=== PATIENT | male | born 1980 | race Caucasian/White ===

== ENCOUNTER 2016-05-27 19:48 | Emergency (ER) | payer BC, OTHER ==
[2016-05-27 19:56] VITALS: RESP 18
[2016-05-27] MEDS ORDERED: SODIUM CHLORIDE 0.9% 1,000 ML IV STA (20:19)
--- NOTE | 2016-05-27 20:25 | ED ---
Chest Pain HPI - General Chief Complaint: Chest Pain Stated Complaint: Dizzy,Chest Pain Time Seen by Provider: 05/27/16 20:07 Source: patient Mode of arrival: ambulatory Limitations: no limitations - History of Present Illness Initial Comments: Unwell, he had the chest pain off and on for quite a few days now yesterday he felt quite weak he fell He Was Feverish and Had Some Chills Nausea and a Chest Pain or Chest Pain Is Not Any Worse with a Deep Breaths Denies Any Cough He Is Not Bringing up Any Phlegm He Does Have a History of Seizures He Is Not on Any Medications for That Only Surgery He Has a Was Seen and a Tonsils and Adenoids. He Denies Any Sinus Symptoms of TIA or CVA No Abdominal Pain No Frequency Urgency Dysuria He Has Been Smoking for the Last 15 Years Denies Any Alcohol Use but Denies Any Street Drugs and Family History Is Unremarkable for Hernia Artery Disease - Related Data Home Medications Medication Instructions Recorded Confirmed Buprenorphine HCl/Naloxone HCl 0.5 film SL BID 05/27/16 05/27/16 [Suboxone 8 mg-2 mg Sl Film] cloNIDine HCL [Catapres] 0.1 mg PO HS 05/27/16 05/27/16 lamoTRIgine [LaMICtal] 25 mg PO BID 05/27/16 05/27/16 Allergies Allergy/AdvReac Type Severity Reaction Status Date / Time Penicillins Allergy Rash/Hives Verified 05/27/16 20:16 Review of Systems ROS Statement: Those systems with pertinent positive or pertinent negative responses have been documented in the HPI. ROS Other: All systems not noted in ROS Statement are negative. EKG Findings - EKG Comments: EKG Findings:: Review of this EKG shows normal sinus rhythm ventricular rate is 67 CO interval is 144 QRS duration is 94 QT/QTc is 46/429 review of this EKG does not reveal any ST elevation or ST depression Past Medical History Past Medical History: Seizure Disorder History of Any Multi-Drug Resistant Organisms: None Reported Past Surgical History: Tonsillectomy Past Psychological History: No Psychological Hx Reported Smoking Status: Current every day smoker Past Alcohol Use History: None Reported Past Drug Use History: None Reported, Cocaine, Marijuana General Exam - General Exam Comments Initial Comments: General: The patient is awake and alert, in no distress, and does not appear acutely ill. Skin: Skin is warm and dry and no rashes or lesions are noted. Eye: Pupils are equal, round and reactive to light, extra-ocular movements are intact; there is normal conjunctiva bilaterally. Ears, nose, mouth and throat: There are moist mucous membranes and no oral lesions. Neck: The neck is supple, there is no tenderness or JVD. Cardiovascular: There is a regular rate and rhythm. No murmur, rub or gallop is appreciated. Respiratory: To auscultation bilateral, no wheezing no rhonchi no distress respiratory allen noticed Gastrointestinal: Mildly tender in epigastric area, bowel sounds are positive no guarding no rebounds Back: There is no tenderness to palpation in the midline. There is no obvious deformity. Musculoskeletal: Normal ROM, no tenderness, There is no pedal edema. There is no calf tenderness or swelling. No cords were appreciated. Neurological: CN II-XII intact, Cranial nerves III through XII are intact. There are no obvious motor or sensory deficits. Coordination appears grossly intact. Speech is normal. Psychiatric: Cooperative, appropriate mood & affect, normal judgment. Limitations: no limitations Course Vital Signs 05/27/16 19:52 Temperature 98.6 F Pulse Rate 80 Respiratory 18 Rate Blood Pressure 112/71 O2 Sat by Pulse 97 Oximetry - Reevaluation(s) Reevaluation #1: 05/27/16 22:42 He was offered him a CT of the abdomen in the ER, he stated he could see his family doctor tomorrow and he worked past he was advised to have a CAT scan of the abdomen done by family doctor as well as a repeat peak lipase and amylase to make sure that is trending downward. He is advised to come back if his abdominal pain gets worse as well as his chest pain is concerned his EKG and troponin are negative since he has been smoking for a good 15 years advised him to call customs import specialist was seen in the morning and set up a stress test with the customs import specialist Disposition Clinical Impression: Chest pain, Pancreatitis Disposition: HOME SELF-CARE Instructions: Chest Pain (ED) Referrals: None,Stated [Primary Care Provider] - 1-2 days Ailyn Layne MD [STAFF PHYSICIAN] - 1-2 days
[2016-05-27 20:45] LABS: Basophils # (A) 0.1 k/uL (0-0.2); Basophils % (A) 1 %; CH 31.1; CHCM 36.7; Eosinophils # (A) 0.3 k/uL (0-0.7); Eosinophils % (A) 4 %; HCT 45.2 % (39.0-53.0); HDW 2.88; HGB 16.1 gm/dL (13.0-17.5); Luc # (Auto) 0.17; Luc % (Auto) 2; Lymphocytes # (A) 2.5 k/uL (1.0-4.8); Lymphocytes % (A) 32 %; MCH 30.3 pg (25.0-35.0); MCHC 35.6 g/dL (31.0-37.0); Mean Platelet Volume 7.4; Monocytes # (A) 0.3 k/uL (0-1.0); Monocytes % (A) 4 %; Neutrophils # (A) 4.3 k/uL (1.3-7.7); Neutrophils % (A) 57 %; RBC 5.31 m/uL (4.30-5.90); RDW 12.8 % (11.5-15.5); WBC 7.6 k/uL (3.8-10.6); WBC (Perox) 7.17
[2016-05-27 20:54] LABS: ALT 37 U/L (21-72); AST 34 U/L (17-59); Alkaline Phosphatase 78 U/L (38-126); Amylase 123 U/L (30-110); Anion Gap 11 mmol/L; Blood Urea Nitrogen 11 mg/dL (9-20); Calcium 9.7 mg/dL (8.4-10.2); Carbon Dioxide 25 mmol/L (22-30); Chloride 105 mmol/L (98-107); Glucose 99 mg/dL (74-99); Magnesium 1.8 mg/dL (1.6-2.3); Non-African American GFR(MDRD) >60 (>60 ml/min/1.73 sqM); Sodium 141 mmol/L (137-145); Total Bilirubin 0.7 mg/dL (0.2-1.3); Total Protein 7.1 g/dL (6.3-8.2)
[2016-05-27 20:58] LABS: INR 1.1 (<1.1); Partial Thromboplastin Time 27.8 sec (22.0-30.0); Prothrombin Time 10.8 sec (9.0-12.0)
--- NOTE | 2016-05-27 21:05 | XR ---
EXAMINATION TYPE: XR chest 2V DATE OF EXAM: 05/27/2016 8:48 PM COMPARISON: NONE HISTORY: Chest pain TECHNIQUE: Frontal and lateral views of the chest are obtained. FINDINGS: Heart and mediastinum are normal. Lungs are clear. Diaphragm is normal. Bony thorax and so ft tissues appear normal. There are chest leads. IMPRESSION: Normal chest
[2016-05-27 21:14] LABS: Creatine Kinase 204 U/L (55-170)
[2016-05-27 21:27] LABS: Creatine Kinase MB 2.4 ng/mL (0.0-2.4); Troponin I <0.012 ng/mL (0.000-0.034)
[2016-05-27 23:10] VITALS: BP 137/78; PULSE 74; TEMP 97.9
== END 2016-05-27 23:06 | disposition home or self-care (01) ==
LOC: EC 19:48
DX: R07.9 Chest pain, unspecified (principal); K85.90 Acute pancreatitis without necrosis or infection, unspecified; R42 Dizziness and giddiness; R11.0 Nausea; R68.83 Chills (without fever); G40.909 Epilepsy, unspecified, not intractable, without status epilepticus; F17.200 Nicotine dependence, unspecified, uncomplicated; Z79.51 Long term (current) use of inhaled steroids; Z79.899 Other long term (current) drug therapy; Z88.0 Allergy status to penicillin
CPT/HCPCS: 36415; 71020; 80053; 82150; 82550; 82553; 83690; 83735; 84484; 85025; 85610; 85730; 93005; 96360; 96361; 99285

== ENCOUNTER 2016-06-04 17:36 | Emergency (ER) | payer BC ==
[2016-06-04 17:41] VITALS: TEMP 97.3
[2016-06-04] MEDS ORDERED: SODIUM CHLORIDE 0.9% 1,000 ML IV STA (19:21)
[2016-06-04] MEDS ORDERED: RX INFO: IV CONTRAST WAS GIVEN 1 EACH MISC MISCELLANE PRN (19:23)
--- NOTE | 2016-06-04 19:39 | ED ---
Abdominal Pain HPI - General Chief Complaint: Abdominal Pain Stated Complaint: Rt side pain Time Seen by Provider: 06/04/16 19:12 Source: patient Mode of arrival: ambulatory Limitations: no limitations - History of Present Illness Initial Comments: 35-year-old male patient presents to emergency department today for complaints of right flank pain. Patient states that this pain has been present on and off for the last month. Patient states the pain seems to be worsening. Patient states that he has a constant dull ache in his right flank, but occasionally the pain becomes sharp and worsens to a 7-8 out of 10. Patient states that today he did have a near syncopal episode, he became diaphoretic and felt like he was going to pass out, but symptoms resolved with splashing cold water on his face. Patient was seen here on May 27 for similar symptoms, did have a an elevated lipase, a computed tomography scan was offered but patient refused at that time. Patient states he is nauseated and has vomited a couple times over the last month, but denies any vomiting today. Denies any constipation or diarrhea, denies any dizziness, weakness, fever, chills, hematuria, dysuria, urinary urgency, urinary frequency. 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 Patient states he has been taking Suboxone and has not used heroin for the last 5 months. - Related Data Home Medications Medication Instructions Recorded Confirmed Buprenorphine HCl/Naloxone HCl 0.5 film SL TID 05/27/16 06/04/16 [Suboxone 8 mg-2 mg Sl Film] cloNIDine HCL [Catapres] 0.1 mg PO HS 05/27/16 06/04/16 lamoTRIgine [LaMICtal] 50 mg PO HS 05/27/16 06/04/16 Multivitamins, Thera [Multivitamin 1 tab PO DAILY 06/04/16 06/04/16 (formulary)] Previous Rx's Medication Instructions Recorded Ondansetron Odt [Zofran Odt] 4 mg PO Q8HR PRN #10 tab 06/04/16 Allergies Allergy/AdvReac Type Severity Reaction Status Date / Time Penicillins AdvReac SEIZURE Verified 06/04/16 19:29 Review of Systems ROS Statement: Those systems with pertinent positive or pertinent negative responses have been documented in the HPI. ROS Other: All systems not noted in ROS Statement are negative. Past Medical History Past Medical History: Seizure Disorder History of Any Multi-Drug Resistant Organisms: None Reported Past Surgical History: Tonsillectomy Past Psychological History: No Psychological Hx Reported Smoking Status: Current every day smoker Past Alcohol Use History: None Reported Past Drug Use History: None Reported General Exam Limitations: no limitations General appearance: alert, in no apparent distress Head exam: Present: atraumatic, normocephalic, normal inspection Eye exam: Present: normal appearance, PERRL, EOMI. Absent: scleral icterus, conjunctival injection, periorbital swelling ENT exam: Present: normal exam, mucous membranes moist Neck exam: Present: normal inspection. Absent: tenderness, meningismus, lymphadenopathy Respiratory exam: Present: normal lung sounds bilaterally. Absent: respiratory distress, wheezes, rales, rhonchi, stridor Cardiovascular Exam: Present: regular rate, normal rhythm, normal heart sounds. Absent: systolic murmur, diastolic murmur, rubs, gallop, clicks GI/Abdominal exam: Present: soft, tenderness (Over the right flank), normal bowel sounds. Absent: distended, guarding, rebound, rigid, organomegaly, mass, hernia Back exam: Present: normal inspection, CVA tenderness (R). Absent: CVA tenderness (L) Neurological exam: Present: alert, oriented X3, CN II-XII intact Psychiatric exam: Present: normal affect, normal mood Skin exam: Present: warm, dry, intact, normal color. Absent: rash Course Vital Signs 06/04/16 06/04/16 06/04/16 17:37 20:40 21:37 Temperature 97.3 F L Pulse Rate 64 65 66 Respiratory 16 18 18 Rate Blood Pressure 128/73 149/75 133/61 O2 Sat by Pulse 97 100 98 Oximetry Medical Decision Making - Medical Decision Making 35-year-old male patient presented to emergency department today for evaluation of left flank pain and nausea. Patient states his been going on for the last 2 months. Patient did have blood drawn, there was a mixup in the lab and the specimens are lost. Did attempt to have labs redrawn for the patient but he refused to have them drawn again. Did explain importance of obtaining lab specimens, patient states that he did not want to be poked anymore. CT results did show possible gastroenteritis. Previous lab obtained on 05/27/2016 did show elevated lipase. Patient will be discharged home with a prescription for Zofran, instructions to take home pain medications, and a follow-up recommendation with gastroenterology. Patient ejected return for any new, worsening, or concerning symptoms. Patient verbalized understanding and agreed to this plan. - EKG Data -: EKG Interpreted by Me 06/04/16 19:56 EKG obtained at 1940 reveals sinus bradycardia with a ventricular rate of 53, [place] interval 146, QRS duration 100, QT 422, QTC 395. No evidence of ST elevation or depression. Disposition Clinical Impression: Gastroenteritis, Flank pain Disposition: HOME SELF-CARE Condition: Stable Instructions: Abdominal Pain (ED), Gastroenteritis (ED) Additional Instructions: Increase fluids. Take nausea medication as prescribed. Continue home pain medications. Return for any new, worsening, or concerning symptoms. Prescriptions: Ondansetron Odt [Zofran Odt] 4 mg PO Q8HR PRN #10 tab PRN Reason: Nausea Referrals: None,Stated [Primary Care Provider] - 1-2 days Lu Cason MD [STAFF PHYSICIAN] - 1-2 days Time of Disposition: 22:28
[2016-06-04 20:42] VITALS: RESP 18
--- NOTE | 2016-06-04 20:50 | CT ---
EXAMINATION TYPE: CT abdomen pelvis w con DATE OF EXAM: 06/04/2016 8:42 PM COMPARISON: NONE HISTORY: Right sided mid abdominal pain with nausea CT DLP: 886.2 mGycm CONTRAST: CT scan of the abdomen and pelvis is performed without Oral Contrast and with IV Contrast, patient in jected with 100 mL of Omnipaque 300. FINDINGS: LUNG BASES-: No visible nodule. No infiltrate. LIVER/GB: No calcified gallstones. No space occupying hepatic lesion. Biliary tree is of normal ca liber. PANCREAS: No inflammation. No distinct mass. SPLEEN: No splenic enlargement. No lesion seen. ADRENALS: No nodule. No thickening. KIDNEYS/BLADDER: No hydronephrosis. No nephrolithiasis. No disctinct renal mass. Urinary bladder g rossly unremarkable. BOWEL: Normal appendix. Mild fluid distention of the small bowel may reflect gastroenteritis. No infl ammation. GENITAL ORGANS: No gross abnormality. LYMPH NODES: No greater than 1cm abdominal or pelvic lymph nodes are appreciated. AORTA: No significant abnormality. OSSEOUS STRUCTURES: No significant abnormality is seen. OTHER: No significant additional abnormality is seen. IMPRESSION: 1. Correlate for gastroenteritis.
[2016-06-04 21:38] VITALS: BP 133/61; PULSE 66
== END 2016-06-04 22:54 | disposition home or self-care (01) ==
LOC: EC 17:36
DX: K52.9 Noninfective gastroenteritis and colitis, unspecified (principal); R55 Syncope and collapse; G40.909 Epilepsy, unspecified, not intractable, without status epilepticus; F17.200 Nicotine dependence, unspecified, uncomplicated; Z79.899 Other long term (current) drug therapy; Z79.891 Long term (current) use of opiate analgesic; Z88.0 Allergy status to penicillin
CPT/HCPCS: 99284; 93005; 74177; 96360; Q9967

== ENCOUNTER 2021-04-17 10:38 | Emergency (ER) | payer BC ==
[2021-04-17 10:45] VITALS: RESP 18; TEMP 97.7
[2021-04-17 11:29] LABS: Basophils % (A) 1 %; Eosinophils # (A) 0.1 k/uL (0-0.7); Eosinophils % (A) 3 %; HCT 44.4 % (39.0-53.0); HGB 15.6 gm/dL (13.0-17.5); Lymphocytes # (A) 1.5 k/uL (1.0-4.8); Lymphocytes % (A) 30 %; MCH 30.5 pg (25.0-35.0); MCHC 35.2 g/dL (31.0-37.0); MCV 86.6 fL (80.0-100.0); Mean Platelet Volume 7.9; Monocytes # (A) 0.2 k/uL (0-1.0); Monocytes % (A) 4 %; Neutrophils % (A) 61 %; Platelet Count 207 k/uL (150-450); RBC 5.13 m/uL (4.30-5.90); RDW 11.7 % (11.5-15.5); WBC 4.9 k/uL (3.8-10.6)
[2021-04-17 11:38] LABS: ALT 33 U/L (4-49); AST 35 U/L (17-59); African American GFR (CKD) >90 (>60 ml/min/1.73 sqM); Albumin 4.7 g/dL (3.5-5.0); Alkaline Phosphatase 83 U/L (38-126); Anion Gap 10 mmol/L; Blood Urea Nitrogen 13 mg/dL (9-20); Calcium 9.5 mg/dL (8.4-10.2); Carbon Dioxide 27 mmol/L (22-30); Chloride 101 mmol/L (98-107); Glucose 120 mg/dL (74-99); Magnesium 1.8 mg/dL (1.6-2.3); Non-African American GFR(CKD) >90 (>60 ml/min/1.73 sqM); Sodium 138 mmol/L (137-145); Total Bilirubin 0.5 mg/dL (0.2-1.3); Total Protein 7.1 g/dL (6.3-8.2)
[2021-04-17 11:50] LABS: INR 0.9 (<1.2); Partial Thromboplastin Time 26.2 sec (22.0-30.0); Prothrombin Time 10.4 sec (9.0-12.0)
--- NOTE | 2021-04-17 12:44 | XR ---
EXAMINATION TYPE: XR chest 2V DATE OF EXAM: 04/17/2021 COMPARISON: 05/27/2016 INDICATION: Chest pain TECHNIQUE: Frontal and lateral views of the chest are obtained. FINDINGS: The heart size is normal. The pulmonary vasculature is normal. The lungs are clear. IMPRESSION: 1. No acute pulmonary process.
[2021-04-17 13:38] VITALS: BP 103/77; PULSE 66
--- NOTE | 2021-04-17 13:53 | ED ---
General Adult HPI - General Chief complaint: Chest Pain Stated complaint: chest pain, lt arm tingling, SOB Time Seen by Provider: 04/17/21 13:24 Source: patient, RN notes reviewed, old records reviewed Mode of arrival: ambulatory Limitations: no limitations - History of Present Illness Initial comments: Patient is a 40-year-old male with past medical history remarkable for tobacco use, childhood seizure disorder who presents emergency department over concern for chest discomfort that has been ongoing for the last one half weeks. CT also occasionally will have heart palpitations. States the chest pain occasionally is associated with left arm paresthesias. This is he occasionally shortness of breath. Does have a history of anxiety. No known palliative or provocative factors. States he believes it may be secondary to anxiety, however would like to be evaluated. He had Covid in December. Denies any fevers, chills, cough. Denies any nausea, vomiting, abdominal pain. His no other acute complaints at this time. Patient was evaluated after he was placed in a room. Workup was completed at that time. - Related Data Home Medications Medication Instructions Recorded Confirmed Buprenorphine HCl/Naloxone HCl 0.5 film SL TID 05/27/16 06/04/16 [Suboxone 8 mg-2 mg Sl Film] cloNIDine HCL [Catapres] 0.1 mg PO HS 05/27/16 06/04/16 lamoTRIgine [LaMICtal] 50 mg PO HS 05/27/16 06/04/16 Multivitamins, Thera [Multivitamin 1 tab PO DAILY 06/04/16 06/04/16 (formulary)] Previous Rx's Medication Instructions Recorded Ondansetron Odt [Zofran Odt] 4 mg PO Q8HR PRN #10 tab 06/04/16 Mag Hydrox/Al Hydrox/Simeth 30 ml PO BID PRN #400 ml 04/17/21 [Maalox] Allergies Allergy/AdvReac Type Severity Reaction Status Date / Time Penicillins AdvReac SEIZURE Verified 04/17/21 10:45 Review of Systems ROS Statement: Those systems with pertinent positive or pertinent negative responses have been documented in the HPI. ROS Other: All systems not noted in ROS Statement are negative. Past Medical History Past Medical History: Seizure Disorder History of Any Multi-Drug Resistant Organisms: None Reported Past Surgical History: Tonsillectomy Past Psychological History: No Psychological Hx Reported Smoking Status: Vaper Past Alcohol Use History: None Reported Past Drug Use History: None Reported General Exam - General Exam Comments Initial Comments: General: Appears in no acute distress. HEAD: Normal with no signs of head trauma. EYES: PERRLA, EOMI, conjunctiva normal, no discharge. ENT: Hearing grossly intact, normal oropharynx. RESPIRATORY: Clear breath sounds bilaterally. No wheezes, rales, or rhonchi. C/V: Regular rate and rhythm. S1 and S2 auscultated, no edema, peripheral pulses 2+ and intact throughout ABD: Abd is soft, nontender, nondistended EXT: Normal range of motion, no obvious deformity SKIN: No rashes or lesions observed on exposed skin. NEURO: Alert and oriented 4. Limitations: no limitations Course Vital Signs 04/17/21 04/17/21 10:40 13:37 Temperature 97.7 F Pulse Rate 93 66 Respiratory 18 18 Rate Blood Pressure 138/87 103/77 O2 Sat by Pulse 100 99 Oximetry Medical Decision Making - Medical Decision Making Based on the patient's presentation and physical exam, I'm concerned for possible cardiopulmonary etiology for his current symptoms. We will go suspicion, as they have been ongoing for a week and a half he does have a history of anxiety. Patient also seems somewhat musculoskeletal as it does reproduce on movement and stretching. Also be acid reflux. Workup was completed about time evaluated the patient in the room. EKG showed no acute ischemic processes. Chest x-ray showed no acute cardiopulmonary process. Lavatory studies are remarkable for negative troponin, negative d-dimer, and relatively unremarkable labs otherwise. On reevaluation, patient is currently symptomatic. I did discuss with him at length his workup and findings. Heart score is 1. I do believe it is safe for him to be discharged home at this time and he was in agreement the plan. He'll be given acid reflux medications for home. Patient is already on Pepcid. I will provide the patient with a prescription for Maalox. I instructed the patient to follow up with their PCP in the next 3 days. I explained that the patient should return to the emergency department if they experience any worsening symptoms. Strict return precautions were discussed with the patient. The patient expressed understanding of these instructions. I answered all questions that the patient had. The patient was discharged home in good condition with their prescriptions and follow up information. - Lab Data Result diagrams: 04/17/21 11:00 04/17/21 11:00 Lab Results 04/17/21 04/17/21 04/17/21 Range/Units 11:00 11:00 11:00 WBC 4.9 (3.8-10.6) k/uL RBC 5.13 (4.30-5.90) m/uL Hgb 15.6 (13.0-17.5) gm/dL Hct 44.4 (39.0-53.0) % MCV 86.6 (80.0-100.0) fL MCH 30.5 (25.0-35.0) pg MCHC 35.2 (31.0-37.0) g/dL RDW 11.7 (11.5-15.5) % Plt Count 207 (150-450) k/uL MPV 7.9 Neutrophils % 61 % Lymphocytes % 30 % Monocytes % 4 % Eosinophils % 3 % Basophils % 1 % Neutrophils # 3.0 (1.3-7.7) k/uL Lymphocytes # 1.5 (1.0-4.8) k/uL Monocytes # 0.2 (0-1.0) k/uL Eosinophils # 0.1 (0-0.7) k/uL Basophils # 0.0 (0-0.2) k/uL PT 10.4 (9.0-12.0) sec INR 0.9 (<1.2) APTT 26.2 (22.0-30.0) sec D-Dimer <0.17 (<0.60) mg/L FEU Sodium 138 (137-145) mmol/L Potassium 4.0 (3.5-5.1) mmol/L Chloride 101 (98-107) mmol/L Carbon Dioxide 27 (22-30) mmol/L Anion Gap 10 mmol/L BUN 13 (9-20) mg/dL Creatinine 0.70 (0.66-1.25) mg/dL Est GFR (CKD-EPI)AfAm >90 (>60 ml/min/1.73 sqM) Est GFR (CKD-EPI)NonAf >90 (>60 ml/min/1.73 sqM) Glucose 120 H (74-99) mg/dL Calcium 9.5 (8.4-10.2) mg/dL Magnesium 1.8 (1.6-2.3) mg/dL Total Bilirubin 0.5 (0.2-1.3) mg/dL AST 35 (17-59) U/L ALT 33 (4-49) U/L Alkaline Phosphatase 83 (38-126) U/L Troponin I (0.000-0.034) ng/mL Total Protein 7.1 (6.3-8.2) g/dL Albumin 4.7 (3.5-5.0) g/dL 04/17/21 Range/Units 11:00 WBC (3.8-10.6) k/uL RBC (4.30-5.90) m/uL Hgb (13.0-17.5) gm/dL Hct (39.0-53.0) % MCV (80.0-100.0) fL MCH (25.0-35.0) pg MCHC (31.0-37.0) g/dL RDW (11.5-15.5) % Plt Count (150-450) k/uL MPV Neutrophils % % Lymphocytes % % Monocytes % % Eosinophils % % Basophils % % Neutrophils # (1.3-7.7) k/uL Lymphocytes # (1.0-4.8) k/uL Monocytes # (0-1.0) k/uL Eosinophils # (0-0.7) k/uL Basophils # (0-0.2) k/uL PT (9.0-12.0) sec INR (<1.2) APTT (22.0-30.0) sec D-Dimer (<0.60) mg/L FEU Sodium (137-145) mmol/L Potassium (3.5-5.1) mmol/L Chloride (98-107) mmol/L Carbon Dioxide (22-30) mmol/L Anion Gap mmol/L BUN (9-20) mg/dL Creatinine (0.66-1.25) mg/dL Est GFR (CKD-EPI)AfAm (>60 ml/min/1.73 sqM) Est GFR (CKD-EPI)NonAf (>60 ml/min/1.73 sqM) Glucose (74-99) mg/dL Calcium (8.4-10.2) mg/dL Magnesium (1.6-2.3) mg/dL Total Bilirubin (0.2-1.3) mg/dL AST (17-59) U/L ALT (4-49) U/L Alkaline Phosphatase (38-126) U/L Troponin I <0.012 (0.000-0.034) ng/mL Total Protein (6.3-8.2) g/dL Albumin (3.5-5.0) g/dL - EKG Data -: EKG Interpreted by Me EKG Comments: 12-lead Electrocardiogram Interpretation Note EKG was reviewed and interpreted by myself. 12-lead ECG performed at 1100 is interpreted by me as revealing normal sinus rhythm at a rate of 75 beats per minute. [place] is slightly rightward deviated. [place] interval is 156 ms, QRS is 101 ms, QTc is 394 ms.. There were no ST or T wave abnormalities to suggest myocardial ischemia or injury. R wave progression across the precordium was satisfactory. By my interpretation this EKG is non-diagnostic for acute ischemia. Disposition Clinical Impression: Chest pain of unknown etiology, GERD (gastroesophageal reflux disease) Disposition: HOME SELF-CARE Condition: Good Instructions (If sedation given, give patient instructions): Chest Pain (ED) Prescriptions: Mag Hydrox/Al Hydrox/Simeth [Maalox] 30 ml PO BID PRN #400 ml PRN Reason: Dyspepsia Is patient prescribed a controlled substance at d/c from ED?: No Referrals: Philipp Sandoval DO [Primary Care Provider] - 1-2 days
== END 2021-04-17 14:05 | disposition home or self-care (01) ==
LOC: EC 10:38
DX: R07.89 Other chest pain (principal); K21.9 Gastro-esophageal reflux disease without esophagitis; F17.290 Nicotine dependence, other tobacco product, uncomplicated; Z88.0 Allergy status to penicillin
CPT/HCPCS: 36415; 71046; 80053; 83735; 84484; 85025; 85379; 85610; 85730; 93005; 99285

== ENCOUNTER 2021-04-23 21:04 | Emergency (ER) | payer BC ==
[2021-04-23 21:26] VITALS: RESP 20; TEMP 97.5
[2021-04-23 21:52] LABS: Appearance,Urine Clear (Clear); Bilirubin,Urine Negative (Negative); Blood,Urine Negative (Negative); Color,Urine Yellow; Glucose,Urine (UA) Negative (Negative); Ketones,Urine Negative (Negative); Leukocyte Esterase,Urine Negative (Negative); Nitrite,Urine Negative (Negative); PH, Urine 5.5 (5.0-8.0); Protein,Urine Negative (Negative); Specific Gravity,Urine 1.042 (1.001-1.035); Urobilinogen,Urine <2.0 mg/dL (<2.0)
[2021-04-23] MEDS ORDERED: SODIUM CHLORIDE 0.9% 1,000 ML IV STA (23:47)
[2021-04-23] MEDS ORDERED: FAMOTIDINE 20 MG/2 ML VIAL IV STA (23:51)
[2021-04-23] MEDS ORDERED: ONDANSETRON 4 MG/2 ML VIAL IVP STA (23:51)
[2021-04-24 01:00] LABS: Basophils % (A) 0 %; Eosinophils # (A) 0.1 k/uL (0-0.7); Eosinophils % (A) 2 %; HCT 43.1 % (39.0-53.0); Lymphocytes # (A) 1.7 k/uL (1.0-4.8); Lymphocytes % (A) 28 %; MCH 30.6 pg (25.0-35.0); MCHC 34.8 g/dL (31.0-37.0); MCV 87.9 fL (80.0-100.0); Mean Platelet Volume 7.7; Monocytes # (A) 0.3 k/uL (0-1.0); Monocytes % (A) 4 %; Neutrophils # (A) 3.9 k/uL (1.3-7.7); Neutrophils % (A) 64 %; Platelet Count 206 k/uL (150-450); RBC 4.91 m/uL (4.30-5.90); RDW 12.4 % (11.5-15.5); WBC 6.1 k/uL (3.8-10.6)
[2021-04-24 01:13] LABS: ALT 27 U/L (4-49); AST 30 U/L (17-59); African American GFR (CKD) >90 (>60 ml/min/1.73 sqM); Albumin 4.5 g/dL (3.5-5.0); Alkaline Phosphatase 78 U/L (38-126); Amylase 83 U/L (30-110); Anion Gap 8 mmol/L; Blood Urea Nitrogen 12 mg/dL (9-20); Calcium 9.3 mg/dL (8.4-10.2); Carbon Dioxide 27 mmol/L (22-30); Chloride 102 mmol/L (98-107); Glucose 98 mg/dL (74-99); Lipase 228 U/L (23-300); Non-African American GFR(CKD) >90 (>60 ml/min/1.73 sqM); Potassium 4.6 mmol/L (3.5-5.1); Sodium 137 mmol/L (137-145); Total Bilirubin 0.7 mg/dL (0.2-1.3); Total Protein 6.8 g/dL (6.3-8.2)
--- NOTE | 2021-04-24 01:17 | ED ---
Abdominal Pain HPI - General Source: patient Mode of arrival: ambulatory Limitations: no limitations - History of Present Illness MD Complaint: abdominal pain <Therese Reddy - Last Filed: 04/24/21 02:30> <Randell Sagastume - Last Filed: 04/26/21 14:15> - General Chief Complaint: Abdominal Pain Stated Complaint: Abd pain Time Seen by Provider: 04/23/21 23:32 - History of Present Illness Initial Comments: He specifically 40-year-old male sent in with chief complaint of abdominal pain. The pain comes and goes and has been present for about 2 weeks. Pain is a cramping, bloating, burning pain located in the epigastric region. Pain is worse with eating, not affected by food intake. Patient has been seen in the [facility] and by his PCP regarding pain. His PCP advised treatment with Prilosec, and patient states he recently told him to double his dose to 40 mg a day. Patient states that Prilosec has made the pain worse. Patient received an abdominal CT today which revealed no acute abdominal process. Patient states he has not taken any other medication outside of Prilosec for symptomatic relief. Patient admits to nausea and diarrhea. Denies vomiting, hematochezia, constipation, fever, chills, chest pain, shortness of breath, palpitations, dysuria, urgency, frequency, flank pain, headache, rash. (Therese Reddy) - Related Data Home Medications Medication Instructions Recorded Confirmed Omeprazole [PriLOSEC] 20 mg PO DAILY 04/23/21 04/25/21 Sucralfate [Carafate] 1 gm PO ACHS 04/23/21 04/25/21 Buprenorphine HCl/Naloxone HCl 4 mg SUBLINGUAL BID 04/25/21 04/25/21 [Buprenorphine-Nalox 8-2Mg Film] Previous Rx's Medication Instructions Recorded Dicyclomine [Bentyl] 20 mg PO QID PRN #20 tablet 04/24/21 Ondansetron Odt [Zofran Odt] 4 mg PO Q8HR PRN #20 tab 04/24/21 Allergies Allergy/AdvReac Type Severity Reaction Status Date / Time Penicillins AdvReac SEIZURE Verified 04/25/21 12:35 Review of Systems ROS Other: All systems not noted in ROS Statement are negative. <Therese Reddy - Last Filed: 04/24/21 02:30> ROS Other: All systems not noted in ROS Statement are negative. <HamletkhloeRandell - Last Filed: 04/26/21 14:15> ROS Statement: Those systems with pertinent positive or pertinent negative responses have been documented in the HPI. Past Medical History Past Medical History: Seizure Disorder History of Any Multi-Drug Resistant Organisms: None Reported Past Surgical History: Tonsillectomy Past Psychological History: No Psychological Hx Reported Smoking Status: Vaper Past Alcohol Use History: None Reported Past Drug Use History: None Reported <Therese Reddy - Last Filed: 04/24/21 02:30> General Exam Limitations: no limitations General appearance: alert, in no apparent distress, anxious Head exam: Present: atraumatic, normocephalic, normal inspection Eye exam: Present: normal appearance, PERRL, EOMI. Absent: scleral icterus, conjunctival injection, periorbital swelling ENT exam: Present: normal exam, mucous membranes moist Neck exam: Present: normal inspection Respiratory exam: Present: normal lung sounds bilaterally. Absent: respiratory distress, wheezes, rales, rhonchi, stridor Cardiovascular Exam: Present: regular rate, normal rhythm, normal heart sounds. Absent: systolic murmur, diastolic murmur, rubs, gallop, clicks GI/Abdominal exam: Present: soft, tenderness (Right upper quadrant, mild), normal bowel sounds. Absent: distended, guarding, rebound, rigid Neurological exam: Present: alert, oriented X3, CN II-XII intact Psychiatric exam: Present: normal affect, normal mood Skin exam: Present: warm, dry, intact, normal color. Absent: rash <Therese Reddy - Last Filed: 04/24/21 02:30> Course Vital Signs 04/23/21 04/24/21 21:22 00:26 Temperature 97.5 F L Pulse Rate 67 88 Respiratory 20 20 Rate Blood Pressure 130/78 124/61 O2 Sat by Pulse 98 98 Oximetry Medical Decision Making - Lab Data Result diagrams: 04/23/21 23:47 04/23/21 23:47 - Radiology Data Radiology results: report reviewed <Therese Reddy - Last Filed: 04/24/21 02:30> - Lab Data Result diagrams: 04/23/21 23:47 04/23/21 23:47 <Randell Sagastume - Last Filed: 04/26/21 14:15> - Medical Decision Making Patient is a 40-year-old male presenting with chief complaint of abdominal pain. Pain is located primarily in the epigastric region. He states it feels like a burning, cramping, gnawing pain. He admits to frequent bloating and states that "as soon as food hits my stomach I am in pain". He admits to nausea and no vomiting. He admits to occasional diarrhea. He denies chest pain, shortness of breath, palpitations. He takes Prilosec as advised by his PCP, states that it makes the pain worse. On exam there is mild tenderness in the right upper quadrant, normal bowel sounds in all 4 quadrants. He had a computed tomography scan today prior to arrival in the ER that was unremarkable. His labs were unremarkable. He was given Pepcid and Zofran and dated that they did not change his symptoms. Patient was given a prescription for a gallbladder ultrasound and told to come back tomorrow to have the study performed. Follow up with GI in 1- 2 days. Follow-up with PCP in one to 2 days. Provided with prescription for Bentyl 20 mg 4 times a day when necessary and Zofran 4 mg every 8 hours when necessary. Provided with information on low fat, gallbladder friendly diet. Advised patient to keep a symptom diary. All questions. Patient conveyed verbal understanding and agreed to the plan. I discussed this case with my attending Dr. Sagastume. (Therese Reddy) I saw this patient in conjunction with the physician program support assistant. I performed independent history and physical exam. Agree with case management. (Randell Sagastume) - Lab Data Lab Results 04/23/21 04/23/21 04/23/21 Range/Units 21:36 23:47 23:47 WBC 6.1 (3.8-10.6) k/uL RBC 4.91 (4.30-5.90) m/uL Hgb 15.0 (13.0-17.5) gm/dL Hct 43.1 (39.0-53.0) % MCV 87.9 (80.0-100.0) fL MCH 30.6 (25.0-35.0) pg MCHC 34.8 (31.0-37.0) g/dL RDW 12.4 (11.5-15.5) % Plt Count 206 (150-450) k/uL MPV 7.7 Neutrophils % 64 % Lymphocytes % 28 % Monocytes % 4 % Eosinophils % 2 % Basophils % 0 % Neutrophils # 3.9 (1.3-7.7) k/uL Lymphocytes # 1.7 (1.0-4.8) k/uL Monocytes # 0.3 (0-1.0) k/uL Eosinophils # 0.1 (0-0.7) k/uL Basophils # 0.0 (0-0.2) k/uL Sodium 137 (137-145) mmol/L Potassium 4.6 (3.5-5.1) mmol/L Chloride 102 (98-107) mmol/L Carbon Dioxide 27 (22-30) mmol/L Anion Gap 8 mmol/L BUN 12 (9-20) mg/dL Creatinine 0.77 (0.66-1.25) mg/dL Est GFR (CKD-EPI)AfAm >90 (>60 ml/min/1.73 sqM) Est GFR (CKD-EPI)NonAf >90 (>60 ml/min/1.73 sqM) Glucose 98 (74-99) mg/dL Calcium 9.3 (8.4-10.2) mg/dL Total Bilirubin 0.7 (0.2-1.3) mg/dL AST 30 (17-59) U/L ALT 27 (4-49) U/L Alkaline Phosphatase 78 (38-126) U/L Total Protein 6.8 (6.3-8.2) g/dL Albumin 4.5 (3.5-5.0) g/dL Amylase 83 (30-110) U/L Lipase 228 (23-300) U/L Urine Color Yellow Urine Appearance Clear (Clear) Urine pH 5.5 (5.0-8.0) Ur Specific [place] 1.042 H (1.001-1.035) Urine Protein Negative (Negative) Urine Glucose (UA) Negative (Negative) Urine Ketones Negative (Negative) Urine Blood Negative (Negative) Urine Nitrite Negative (Negative) Urine Bilirubin Negative (Negative) Urine Urobilinogen <2.0 (<2.0) mg/dL Ur Leukocyte Esterase Negative (Negative) - Radiology Data Abdominal x-ray confirms this is a nonacute abdomen. (Therese Reddy) Disposition Is patient prescribed a controlled substance at d/c from ED?: No <Therese Reddy - Last Filed: 04/24/21 02:30> <Randell Sagastume - Last Filed: 04/26/21 14:15> Clinical Impression: Abdominal pain Disposition: HOME SELF-CARE Condition: Good Instructions (If sedation given, give patient instructions): Low Fat Diet (ED), Abdominal Pain (ED) Additional Instructions: Patient prescription for ultrasound of the gallbladder, report back to Kar[facility]fern[facility] Stokes test study performed. Follow up with GI in 1-2 days. Follow low-fat diet. Maintain symptom diary to identify potential triggers of pain. Continue to take Prilosec as needed. Report back to ER with worsening symptoms or new onset alarming symptoms, including but not limited to fever, chills, vomiting, blood in stool or emesis. Prescriptions: Dicyclomine [Bentyl] 20 mg PO QID PRN #20 tablet PRN Reason: Abdominal Distention Ondansetron Odt [Zofran Odt] 4 mg PO Q8HR PRN #20 tab PRN Reason: Nausea Referrals: Lu Cason MD [STAFF PHYSICIAN] - 1-2 days Philipp Sandoval DO [Primary Care Provider] - 1-2 days
--- NOTE | 2021-04-24 01:22 | XR ---
EXAMINATION TYPE: XR abdomen acute w cxr DATE OF EXAM: 04/24/2021 COMPARISON: This x-ray 04/17/2021 HISTORY: Abdominal pain TECHNIQUE: 4 views FINDINGS: Heart and mediastinum are normal. Lungs are clear. Diaphragm is normal. There is some contr ast in the large bowel. There is no sign of intestinal obstruction or pneumoperitoneum. Fecal pattern is normal. There are no pathologic calcifications over the kidneys. Bony structures are intact. Ther e is no evidence of abdominal mass. IMPRESSION: Normal chest. Nonacute abdomen.
[2021-04-24 02:25] VITALS: BP 124/61; PULSE 88
== END 2021-04-24 02:45 | disposition home or self-care (01) ==
LOC: EC 21:04
DX: R10.11 Right upper quadrant pain (principal); F17.290 Nicotine dependence, other tobacco product, uncomplicated; Z88.0 Allergy status to penicillin
CPT/HCPCS: 99284; 96374; 96375; 96361; 36415; 80053; 82150; 83690; 85025; 81003; 74022; J2405

== ENCOUNTER → 2021-04-23 | Outpatient (CLI) | payer BC ==
--- NOTE | 2021-04-23 13:38 | CT ---
EXAMINATION TYPE: CT abdomen pelvis w con DATE OF EXAM: 04/23/2021 COMPARISON: CT a/p dated 06/04/2016. CT abdomen and pelvis HISTORY: abdominal pain x1 week with nausea CT DLP: 1152.7 mGycm, Automated Exposure Control for Dose Reduction was Utilized. CONTRAST: CT scan of the abdomen and pelvis is performed with oral and with IV Contrast, patient injected with 100 mL of Isovue 300. FINDINGS: LUNG BASES: No significant abnormality is appreciated. LIVER/GB: No significant abnormality is appreciated. PANCREAS: No significant abnormality is seen. SPLEEN: No significant abnormality is seen. ADRENALS: No significant abnormality is seen. KIDNEYS: No significant abnormality is seen. BOWEL: No suspicious small or large bowel dilatation. Oral contrast reaches the right colon. PROSTATE/SEMINAL VESICLES: No gross abnormality seen. LYMPH NODES: No greater than 1cm abdominal or pelvic lymph nodes are appreciated. OSSEOUS STRUCTURES: Bilateral pars defect L5 level redemonstrated. Slight grade 1 anterolisthesis L5 on S1 redemonstrated. [id number] disc space narrowing lumbosacral junction redemonstrated. OTHER: No significant additional abnormality is seen. IMPRESSION: No bowel obstruction. No significant new or acute finding is seen to account for patient' s clinical symptoms.
== END | disposition home or self-care (01) ==
LOC: RADCTMAIN 11:18
PROVIDERS: ATTEND Family Medicine
DX: R10.84 Generalized abdominal pain (principal); R11.2 Nausea with vomiting, unspecified; R19.7 Diarrhea, unspecified; R50.9 Fever, unspecified
CPT/HCPCS: 74177; Q9967

== ENCOUNTER → 2021-04-25 | Outpatient (CLI) | payer BC ==
--- NOTE | 2021-04-25 13:40 | US ---
EXAMINATION TYPE: US abdomen limited DATE OF EXAM: 04/25/2021 COMPARISON: CT 2021 CLINICAL HISTORY: R10.11 RUQ PAIN. RUQ pain x 2 weeks, bloating, nausea EXAM MEASUREMENTS: Liver Length: 16.2 cm Gallbladder Wall: 0.2 cm CBD: 0.5 cm Right Kidney: 11.2 x 5.0 x 5.1 cm Pancreas: obscured by overlying midline bowel gas Liver: visualized portions wnl, limited by overlying bowel gas Gallbladder: wnl Evidence for sonographic [place]'s sign: no CBD: wnl Right Kidney: wnl IMPRESSION: 1. Right upper quadrant ultrasound is unremarkable.
== END | disposition home or self-care (01) ==
LOC: RADUSWWP 13:01
PROVIDERS: ATTEND Family Medicine
DX: R10.11 Right upper quadrant pain (principal); R14.0 Abdominal distension (gaseous); R11.0 Nausea
CPT/HCPCS: 76705

== ENCOUNTER 2021-04-26 12:11 | Day surgery (SDC) | payer BC ==
[2021-04-26] MEDS ORDERED: LACTATED RINGERS 1,000 ML IV SCH (12:28)
[2021-04-26 12:42] VITALS: TEMP 97.9
[2021-04-26] MEDS ORDERED: LACTATED RINGERS 1,000 ML IV ONE (12:42)
[2021-04-26] MEDS ORDERED: PROPOFOL 10 MG/ML 20 ML VIAL IV ONE (12:50)
--- NOTE | 2021-04-26 13:08 | P.PCN ---
Date of Procedure: 04/26/21 Procedure(s) Performed: BRIEF HISTORY: Patient is a 40-year-old, pleasant, white male scheduled for an upper endoscopy as a part of evaluation of severe epigastric pain for the last 2 weeks' duration. Pain is mostly in epigastric area associated with nausea but no emesis. He went to emergency room on 2 different occasions and had cardiac workup that was negative. CT of abdomen as well as ultrasound of gallbladder were negative. He was started on Prilosec as well as Carafate with improvement in his symptoms. He scheduled for an upper endoscopy to rule out peptic ulcer disease. Patient has been taking NSAIDs for the last several months for chronic back. PROCEDURE PERFORMED: Esophagogastroduodenoscopy. PREOPERATIVE DIAGNOSIS: Severe epigastric pain of 2 weeks' duration. IV sedation per anesthesia. PROCEDURE: After informed consent was obtained, the patient was brought into the endoscopy unit. IV sedation was administered by Anesthesia under continuous monitoring. Initially the Olympus GIF-140 video endoscope was inserted into the mouth. Esophagus intubated without any difficulty. It was gradually advanced into the stomach and duodenum and carefully examined. The bulb had a small duodenal ulcer with no active bleeding. The second part of the duodenum appeared normal. The scope at this time was withdrawn to the stomach, adequately insufflated with air, and upon careful examination, mucosa of the antrum, diffuse gastritis and biopsies were done from this area. The body, cardia and the fundus appeared normal. The scope was then withdrawn into the esophagus. The GE junction was located at 42 cm from the incisors. The esophagus appeared normal. There were no erosions or ulcerations seen and the patient tolerated the procedure well. IMPRESSION: 1. Antral erosive gastritis and duodenitis. 2. 4 mm duodenal bulbar ulcer with no active bleeding. RECOMMENDATIONS: The findings of this examination were discussed with the patient as well as his family. He was advised to follow with the biopsy results. In the meantime recommended to increase the Prilosec to 20 mg twice daily and take Carafate as needed..
[2021-04-26 13:14] VITALS: RESP 16
[2021-04-26 13:38] VITALS: BP 119/77; PULSE 85
== END 2021-04-26 14:24 | disposition home or self-care (01) ==
LOC: ORWHC2ENDO 12:11
PROVIDERS: ATTEND Internal Medicine Gastroenterology
DX: K29.60 Other gastritis without bleeding (principal); F17.200 Nicotine dependence, unspecified, uncomplicated; K21.9 Gastro-esophageal reflux disease without esophagitis; G40.909 Epilepsy, unspecified, not intractable, without status epilepticus; K29.80 Duodenitis without bleeding; K26.9 Duodenal ulcer, unspecified as acute or chronic, without hemorrhage or perforation
CPT/HCPCS: 43239; 88305; J2704

== ENCOUNTER 2021-06-21 13:02 | Day surgery (SDC) | payer BC ==
[2021-06-20 10:44] VITALS: BMI 26.4
[~2021-06-21 13:02] MED LIST: LACTATED RINGERS 1,000 ML IV SCH
[2021-06-21 14:04] VITALS: RESP 16; TEMP 98.5
[2021-06-21] MEDS ORDERED: MIDAZOLAM 2 MG/2 ML VIAL IV ONE (14:18)
[2021-06-21] MEDS ORDERED: PROPOFOL 10 MG/ML 20 ML VIAL IV ONE (14:51)
[2021-06-21] MEDS ORDERED: fentaNYL (PF) 50 MCG/ML 2 ML AMP ONE (14:51)
[2021-06-21] MEDS ORDERED: MIDAZOLAM 2 MG/2 ML VIAL ONE (14:51)
--- NOTE | 2021-06-21 15:15 | P.PCN ---
Date of Procedure: 06/21/21 Procedure(s) Performed: BRIEF HISTORY: Patient is a 40-year-old pleasant white male scheduled for an elective colonoscopy as a part of evaluation of severe lower abdominal pain with alternating diarrhea and constipation for the last 2 months duration. He was also having severe epigastric discomfort and had an upper endoscopy done in April that showed a small duodenal ulcer. His been on Nexium and Carafate with no help with the symptoms. He was started on Bentyl 10 mg 3 times daily and is feeling feeling much better lately. PROCEDURE PERFORMED: Colonoscopy With random biopsies PREOPERATIVE DIAGNOSIS: Lower abdominal pain and altered bowel movements. IV sedation per Anesthesia. PROCEDURE: After informed consent was obtained, the patient, was brought into the endoscopy unit. IV sedation was administered by Anesthesia under continuous monitoring. Digital rectal examination was normal. Initially the Olympus CF-160 flexible video colonoscope was then inserted in the rectum, gradually advanced into the cecum without any difficulty. Careful examination was performed as the scope was gradually being withdrawn. Ileocecal valve and the appendiceal orifice were visualized and appeared normal. Prep was excellent. Mucosa of the cecum, ascending colon, transverse colon, descending colon, appeared normal. Patchy areas of erythema noted which was biopsied. The sigmoid colon, and rectum appeared normal. Biopsies were done from ascending and descending colon/collagenous colitis. Retroflexion was performed in the rectum and no lesions were seen. The patient tolerated the procedure well. IMPRESSION: Normal-appearing colon from rectum to cecum with no evidence of colitis or colorectal neoplasia Mild scattered areas of erythema in the distal sigmoid colon s/p biopsy RECOMMENDATIONS: Findings of this examination were discussed with the patient as well as his family. He was advised to follow with the biopsy results. In the meantime he will continue with dicyclomine 10 milligrams times daily and follow diet modification..
[2021-06-21 15:34] VITALS: BP 124/54; PULSE 58
== END 2021-06-21 15:57 | disposition home or self-care (01) ==
LOC: ORWHC2ENDO 13:02
PROVIDERS: ATTEND Internal Medicine Gastroenterology
DX: R10.30 Lower abdominal pain, unspecified (principal); R19.7 Diarrhea, unspecified; K59.00 Constipation, unspecified; K21.9 Gastro-esophageal reflux disease without esophagitis; K26.9 Duodenal ulcer, unspecified as acute or chronic, without hemorrhage or perforation; Z79.899 Other long term (current) drug therapy; F17.290 Nicotine dependence, other tobacco product, uncomplicated; Z88.0 Allergy status to penicillin; Z86.69 Personal history of other diseases of the nervous system and sense organs; Z90.89 Acquired absence of other organs
CPT/HCPCS: 88305; 45380; J2250; J3010; J2704

== ENCOUNTER → 2021-07-24 | Outpatient (CLI) | payer BC ==
--- NOTE | 2021-07-25 04:19 | MR ---
EXAMINATION TYPE: MR abdomen wo/w con DATE OF EXAM: 07/24/2021 COMPARISON: HISTORY: Mid and LRQ abdominal pain, N & V x 10 days. CONTRAST: Standard multiplanar, multisequence MRI departmental protocol images were obtained without contrast a nd with 8 mL intravenous Gadavist gadolinium contrast. Lung bases show no definite pleural fluid. Heart size is normal. No sign of pericardial effusion. Liver is intact. Bile ducts are nondilated. Gallbladder appears normal. There is no pancreatic mass. The spleen measures 12 cm. There is no evidence of pancreatic mass. Pancreatic duct appears normal. T here is normal flow void in the portal venous system. Stomach is intact. There is no evidence of asci ivelisse. There is no adrenal mass. Kidneys show normal size and contour. No hydronephrosis. There is no evidence of retroperitoneal adenopathy. Contrast images show normal enhancement of the kidneys. There is normal enhancement of the portal mao ous system. No pathologic enhancement in the pancreas. IMPRESSION: Negative MR scan of the abdomen.
== END | disposition home or self-care (01) ==
LOC: RADMRIMAIN 20:52
PROVIDERS: ATTEND Internal Medicine Gastroenterology
DX: R10.9 Unspecified abdominal pain (principal); R11.2 Nausea with vomiting, unspecified
CPT/HCPCS: 74183; A9585

== ENCOUNTER → 2021-09-09 | Outpatient (CLI) | payer BC ==
--- NOTE | 2021-09-09 15:37 | NM ---
EXAMINATION TYPE: NM hepatobiliary w EF DATE OF EXAM: 09/09/2021 COMPARISON: NONE HISTORY: R10.13 EPIGASTRIC PAIN TECHNIQUE: After the intravenous administration of 4.1 mCi Tc 99m Mebrofenin hepatobiliary scintigrap hy is performed. Immediate images post injection. FINDINGS: There is satisfactory initial accumulation of tracer by the liver. The gallbladder is visualized wit hin 16minutes. The small bowel activity is noted within 60minutes. At one hour 8 ounces of oral ens ure plus is given to mimic CCK and gallbladder ejection fraction is calculated at 85 %, in the normal range. Therefore there is no scintigraphic evidence of cystic or common bile duct obstruction to mendenhall ggest acute cholecystitis or gallbladder dyskinesia. IMPRESSION: Exam is within normal limits.
== END | disposition home or self-care (01) ==
LOC: RADNMMAIN 13:03
PROVIDERS: ATTEND Internal Medicine Gastroenterology
DX: R10.13 Epigastric pain (principal)
CPT/HCPCS: 78226; A9537

== ENCOUNTER 2021-09-10 23:57 | Emergency (ER) | payer BC ==
[2021-09-11 00:05] VITALS: RESP 16; TEMP 97.9
--- NOTE | 2021-09-11 00:37 | ED ---
Anxiety HPI - General Chief Complaint: Anxiety Stated Complaint: Anxiety Time Seen by Provider: 09/11/21 00:01 Source: patient, EMS, RN notes reviewed, old records reviewed Mode of arrival: EMS Limitations: altered mental status, physical limitation - History of Present Illness Initial Comments: This is a 40-year-old male to the emergency department for evaluation. Patient's coming in for possibly severe anxiety attack. No travel history no sick contacts no change in medications denies drugs or alcohol tonight. Patient is not homicidal or suicidal. She states he believes symptoms are related to family issues he can't catch his breath is having chest pain and palpitations. MD Complaint: anxiety, heart racing -: hour(s) Symptoms: dyspnea, chest pain, palpitations Place: home Previous History of Same: Yes Severity: severe Quality: worsening Provoking factors: emotional stress Improves With: nothing Associated symptoms: chest pain, shortness of breath, palpitations - Related Data Home Medications: Home Medications Medication Instructions Recorded Confirmed Buprenorphine HCl/Naloxone HCl 4 mg SUBLINGUAL BID 04/25/21 06/21/21 [Buprenorphine-Nalox 8-2Mg Film] Esomeprazole Magnesium 40 mg PO DAILY 06/20/21 06/21/21 Previous Rx's Medication Instructions Recorded Dicyclomine [Bentyl] 20 mg PO QID PRN #20 tablet 04/24/21 Ondansetron Odt [Zofran Odt] 4 mg PO Q8HR PRN #20 tab 04/24/21 Allergies/Adverse Reactions: Allergies Allergy/AdvReac Type Severity Reaction Status Date / Time Penicillins AdvReac SEIZURE Verified 06/21/21 13:53 Review of Systems ROS Statement: Those systems with pertinent positive or pertinent negative responses have been documented in the HPI. ROS Other: All systems not noted in ROS Statement are negative. Past Medical History Past Medical History: Seizure Disorder Additional Past Medical History / Comment(s): HX BLEEDING ULCER. CHILDHOOD EPILEPSY-LAST SEIZURE OVER 20 YEARS AGO. ADB PAIN, BLOATING OVER 2 MONTHS. DUDODENAL ULCER AND GASTRITIS SEEN ON EGD 04/26/21. RASH ON UPPER ARMS-POSSIBLE CELIAC History of Any Multi-Drug Resistant Organisms: None Reported Past Surgical History: Tonsillectomy Additional Past Surgical History / Comment(s): DUDODENAL ULCER AND GASTRITIS SEEN ON EGD 04/26/21 Past Anesthesia/Blood Transfusion Reactions: No Reported Reaction Smoking Status: Former smoker, Vaper - Past Family History Mother Family Medical History: No Reported History General Exam Limitations: no limitations General appearance: alert, in no apparent distress Head exam: Present: atraumatic, normocephalic, normal inspection Eye exam: Present: normal appearance, PERRL, EOMI. Absent: scleral icterus, conjunctival injection, periorbital swelling ENT exam: Present: normal exam, mucous membranes moist Neck exam: Present: normal inspection. Absent: tenderness, meningismus, lymphadenopathy Respiratory exam: Present: normal lung sounds bilaterally. Absent: respiratory distress, wheezes, rales, rhonchi, stridor Cardiovascular Exam: Present: regular rate, normal rhythm, normal heart sounds. Absent: systolic murmur, diastolic murmur, rubs, gallop, clicks GI/Abdominal exam: Present: soft, normal bowel sounds. Absent: distended, tenderness, guarding, rebound, rigid Extremities exam: Present: normal inspection, full ROM, normal capillary refill. Absent: tenderness, pedal edema, joint swelling, calf tenderness Back exam: Present: normal inspection Neurological exam: Present: alert, oriented X3, CN II-XII intact Psychiatric exam: Present: normal affect, normal mood Skin exam: Present: warm, dry, intact, normal color. Absent: rash Course Vital Signs 09/10/21 09/11/21 23:59 04:08 Temperature 97.9 F Pulse Rate 93 77 Respiratory 16 16 Rate Blood Pressure 122/78 108/65 O2 Sat by Pulse 97 98 Oximetry - Reevaluation(s) Reevaluation #1: 09/11/21 Medical record is reviewed Reevaluation #2: 09/11/21 Patient informed of results and questions answered Consult with for does not think patient needs psychiatric evaluation at this time Reevaluation #3: 09/11/21 Patient symptoms are improved Medical Decision Making - Medical Decision Making 40 male to the emergency department for significant anxiety attack. Testing is normal here in the ER, patient symptoms appear all related to anxiety over his son. Not homicidal or suicidal no drugs or alcohol patient can be discharged - Lab Data Result diagrams: 09/11/21 01:29 09/11/21 01:29 Lab Results 09/11/21 09/11/21 09/11/21 Range/Units 01:29 01:29 01:29 WBC 7.9 (3.8-10.6) k/uL RBC 4.87 (4.30-5.90) m/uL Hgb 14.2 (13.0-17.5) gm/dL Hct 42.6 (39.0-53.0) % MCV 87.5 (80.0-100.0) fL MCH 29.2 (25.0-35.0) pg MCHC 33.3 (31.0-37.0) g/dL RDW 12.5 (11.5-15.5) % Plt Count 198 (150-450) k/uL MPV 7.6 Neutrophils % 81 % Lymphocytes % 12 % Monocytes % 4 % Eosinophils % 1 % Basophils % 1 % Neutrophils # 6.5 (1.3-7.7) k/uL Lymphocytes # 1.0 (1.0-4.8) k/uL Monocytes # 0.3 (0-1.0) k/uL Eosinophils # 0.1 (0-0.7) k/uL Basophils # 0.1 (0-0.2) k/uL Sodium 135 L (137-145) mmol/L Potassium 4.6 (3.5-5.1) mmol/L Chloride 102 (98-107) mmol/L Carbon Dioxide 28 (22-30) mmol/L Anion Gap 5 mmol/L BUN 15 (9-20) mg/dL Creatinine 0.89 (0.66-1.25) mg/dL Est GFR (CKD-EPI)AfAm >90 (>60 ml/min/1.73 sqM) Est GFR (CKD-EPI)NonAf >90 (>60 ml/min/1.73 sqM) Glucose 104 H (74-99) mg/dL Calcium 9.1 (8.4-10.2) mg/dL Phosphorus 2.5 (2.5-4.5) mg/dL Magnesium 1.9 (1.6-2.3) mg/dL Total Bilirubin 0.4 (0.2-1.3) mg/dL AST 41 (17-59) U/L ALT 40 (4-49) U/L Alkaline Phosphatase 94 (38-126) U/L Troponin I <0.012 (0.000-0.034) ng/mL NT-Pro-B Natriuret Pep pg/mL Total Protein 6.9 (6.3-8.2) g/dL Albumin 4.7 (3.5-5.0) g/dL TSH 1.450 (0.465-4.680) mIU/L 09/11/21 Range/Units 01:29 WBC (3.8-10.6) k/uL RBC (4.30-5.90) m/uL Hgb (13.0-17.5) gm/dL Hct (39.0-53.0) % MCV (80.0-100.0) fL MCH (25.0-35.0) pg MCHC (31.0-37.0) g/dL RDW (11.5-15.5) % Plt Count (150-450) k/uL MPV Neutrophils % % Lymphocytes % % Monocytes % % Eosinophils % % Basophils % % Neutrophils # (1.3-7.7) k/uL Lymphocytes # (1.0-4.8) k/uL Monocytes # (0-1.0) k/uL Eosinophils # (0-0.7) k/uL Basophils # (0-0.2) k/uL Sodium (137-145) mmol/L Potassium (3.5-5.1) mmol/L Chloride (98-107) mmol/L Carbon Dioxide (22-30) mmol/L Anion Gap mmol/L BUN (9-20) mg/dL Creatinine (0.66-1.25) mg/dL Est GFR (CKD-EPI)AfAm (>60 ml/min/1.73 sqM) Est GFR (CKD-EPI)NonAf (>60 ml/min/1.73 sqM) Glucose (74-99) mg/dL Calcium (8.4-10.2) mg/dL Phosphorus (2.5-4.5) mg/dL Magnesium (1.6-2.3) mg/dL Total Bilirubin (0.2-1.3) mg/dL AST (17-59) U/L ALT (4-49) U/L Alkaline Phosphatase (38-126) U/L Troponin I (0.000-0.034) ng/mL NT-Pro-B Natriuret Pep 49 pg/mL Total Protein (6.3-8.2) g/dL Albumin (3.5-5.0) g/dL TSH (0.465-4.680) mIU/L - EKG Data -: EKG Interpreted by Me (EKG shows sinus rhythm 82 UT 172 QRS 103 QTc 403) Disposition Clinical Impression: Acute anxiety, Panic attack Disposition: HOME SELF-CARE Condition: Good Instructions (If sedation given, give patient instructions): Generalized Anxiety Disorder (ED), Anxiety (ED), Panic Attack (ED) Is patient prescribed a controlled substance at d/c from ED?: No Referrals: Philipp Sandoval DO [Primary Care Provider] - 1-2 days Time of Disposition: 04:00
[2021-09-11] MEDS ORDERED: PANTOPRAZOLE 40 MG/10 ML VIAL IVP STA (00:53)
[2021-09-11] MEDS ORDERED: SODIUM CHLORIDE 0.9% 500 ML 500 ML IV STA (00:53)
[2021-09-11] MEDS ORDERED: ONDANSETRON 4 MG/2 ML VIAL IVP STA (00:53)
[2021-09-11] MEDS ORDERED: diazePAM 5 MG/ML 1 ML VIAL IVP STA (00:53)
[2021-09-11] MEDS ORDERED: SODIUM CHLORIDE 0.9% 1,000 ML IV STA ×2 (00:53)
[2021-09-11 01:45] LABS: Basophils # (A) 0.1 k/uL (0-0.2); Basophils % (A) 1 %; Eosinophils # (A) 0.1 k/uL (0-0.7); Eosinophils % (A) 1 %; HCT 42.6 % (39.0-53.0); HGB 14.2 gm/dL (13.0-17.5); Lymphocytes % (A) 12 %; MCH 29.2 pg (25.0-35.0); MCHC 33.3 g/dL (31.0-37.0); MCV 87.5 fL (80.0-100.0); Mean Platelet Volume 7.6; Monocytes # (A) 0.3 k/uL (0-1.0); Monocytes % (A) 4 %; Neutrophils # (A) 6.5 k/uL (1.3-7.7); Neutrophils % (A) 81 %; Platelet Count 198 k/uL (150-450); RBC 4.87 m/uL (4.30-5.90); RDW 12.5 % (11.5-15.5); WBC 7.9 k/uL (3.8-10.6)
[2021-09-11 01:59] LABS: ALT 40 U/L (4-49); AST 41 U/L (17-59); African American GFR (CKD) >90 (>60 ml/min/1.73 sqM); Albumin 4.7 g/dL (3.5-5.0); Alkaline Phosphatase 94 U/L (38-126); Anion Gap 5 mmol/L; Blood Urea Nitrogen 15 mg/dL (9-20); Calcium 9.1 mg/dL (8.4-10.2); Carbon Dioxide 28 mmol/L (22-30); Chloride 102 mmol/L (98-107); Glucose 104 mg/dL (74-99); Magnesium 1.9 mg/dL (1.6-2.3); Non-African American GFR(CKD) >90 (>60 ml/min/1.73 sqM); Phosphorus 2.5 mg/dL (2.5-4.5); Potassium 4.6 mmol/L (3.5-5.1); Sodium 135 mmol/L (137-145); Total Bilirubin 0.4 mg/dL (0.2-1.3); Total Protein 6.9 g/dL (6.3-8.2)
[2021-09-11 04:10] VITALS: BP 108/65; PULSE 77
== END 2021-09-11 04:09 | disposition home or self-care (01) ==
LOC: EC 23:57
DX: F41.9 Anxiety disorder, unspecified (principal); F41.0 Panic disorder [episodic paroxysmal anxiety]; R07.9 Chest pain, unspecified; Z87.891 Personal history of nicotine dependence; Z88.0 Allergy status to penicillin
CPT/HCPCS: 36415; 93005; 83880; 80053; 83735; 84100; 84443; 84484; 85025; 99285; 96374; 96375 ×2; 96361; J2405; J3360; C9113

== ENCOUNTER → 2021-12-17 | Outpatient (CLI) | payer BC ==
[2021-12-17 20:56] LABS: Appearance,Urine Clear (Clear); Bilirubin,Urine Negative (Negative); Blood,Urine Negative (Negative); Color,Urine Yellow (Yellow); Ketones,Urine Negative (Negative); Nitrite,Urine Negative (Negative); Specific Gravity,Urine 1.019 (1.001-1.030); Urobilinogen,Urine 0.2 (0.2,1.0)
[2021-12-17 21:03] LABS: Bacteria,Urine None Seen /HPF (None Seen)
[2021-12-17 23:35] LABS: Basophils # (A) 0.04 X 10*3/uL (0.00-0.10); Basophils % (A) 0.7 %; Eosinophils # (A) 0.13 X 10*3/uL (0.04-0.35); Eosinophils % (A) 2.4 %; HCT 42.5 % (39.6-50.0); HGB 14.7 g/dL (13.0-17.0); Immature Grans, Automated 0.2 %; Lymphocytes # (A) 1.43 X 10*3/uL (0.90-5.00); Lymphocytes % (A) 26.6 %; MCH 30.2 pg (27.0-32.0); MCHC 34.6 g/dL (32.0-37.0); MCV 87.3 fL (80.0-97.0); Mean Platelet Volume 10.4 fL (9.5-12.2); Monocytes # (A) 0.25 X 10*3/uL (0.20-1.00); Monocytes % (A) 4.7 %; NRBC Per 100 WBC 0 /100 WBCS (0.0-0.0); Neutrophils # (A) 3.51 X 10*3/uL (1.80-7.70); Neutrophils % (A) 65.4 %; Platelet Count 216 X 10*3/uL (140-440); RBC 4.87 X 10*6/uL (4.40-5.60); RDW 11.9 % (11.5-14.5); WBC 5.37 X 10*3/uL (4.50-10.00)
[2021-12-18 01:41] LABS: Protein, Total 7.1 g/dL (6.2-8.2)
[2021-12-18 01:49] LABS: ALT 35 U/L (10-49); AST 40 U/L (14-35); African American GFR (CKD) 123.4 (60.0-200.0); Albumin/Globulin Ratio 2.38 (1.60-3.17); Alkaline Phosphatase 117 U/L (41-126); Blood Urea Nitrogen 11.7 mg/dL (9.0-27.0); Calcium 9.5 mg/dL (8.7-10.3); Carbon Dioxide 28.2 mmol/L (20.0-27.5); Chloride 99 mmol/L (96-109); Globulin 2.1 g/dL (1.6-3.3); Glucose 105 mg/dL (70-110); Non-African American GFR(CKD) 106.5 (60.0-200.0); Potassium 4.2 mmol/L (3.5-5.5); Sodium 138 mmol/L (135-145); Total Protein 7.1 g/dL (6.2-8.2)
[2021-12-18 02:09] LABS: Creatine Kinase 298 U/L (35-257)
[2021-12-18 02:18] LABS: Rheumatoid Factor, Qnt <10 IU/mL (0-15)
[2021-12-18 05:44] LABS: Anti-DNA, DS unit <1.0 IU/mL; Anti-Smith Ab Interp NEGATIVE (NEGATIVE); Cardiolipin Ab IgG Interp NEGATIVE (NEGATIVE); Cardiolipin IgA Antibody <2.0 U/mL; Centromere Antibody <0.2 AI; Centromere Antibody Interp NEGATIVE (NEGATIVE); Cyclic Citrull Pep IgG Unit <0.5 U/mL; Cyclic Citrullinated Pep IgG NEGATIVE (NEGATIVE); DNA Double-Stranded NEGATIVE (NEGATIVE); Scleroderma SC-70 Ab <0.2 AI
[2021-12-18 05:45] LABS: Cardiolipin Ab IgM Interp NEGATIVE (NEGATIVE); Cardiolipin IgM Antibody <1.5 U/mL
[2021-12-18 09:00] LABS: Free Kappa Lt Chain Qnt, Serum 0.98 mg/dL (0.33-1.94); Free Lambda Lt Chain Qnt, Seru 0.83 mg/dL (0.57-2.63)
[2021-12-18 09:21] LABS: Aldolase 7.8 U/L (1.2-7.6)
[2021-12-18 09:46] LABS: Angiotensin-1 Converting Enz. 39 U/L (8-52)
[2021-12-18 09:49] LABS: HLA B27 NEGATIVE
[2021-12-18 11:43] LABS: Smooth Muscle Antibody 4 UNITS (<20)
[2021-12-18 14:14] LABS: APTT 59 Sec(s) (<43); APTT 1:1 Mix 47 Sec(s) (<43); DRVVT 1:1 Mix 38 Sec(s) (<44); Dilute Russell Viper Venom 47 Sec(s) (<44); Hexagonal Phase Neutralization Negative (Negative)
[2021-12-18 14:20] LABS: C-ANCA <1:20 Titer (<1:20)
== END | disposition home or self-care (01) ==
LOC: LABWHC1 14:24
PROVIDERS: ATTEND Internal Medicine Rheumatology
DX: R76.8 Other specified abnormal immunological findings in serum (principal)
CPT/HCPCS: 36415; 80053; 81001; 82085; 82164; 82306; 82550; 83516; 83520; 83883; 84165; 84439; 84443; 85025; 85613; 85730; 86038; 86147; 86160; 86162; 86200; 86225; 86235; 86255; 86334; 86431; 86812

== ENCOUNTER 2022-11-03 09:25 | Day surgery (SDC) | payer OTHER ==
[2022-10-30 18:24] VITALS: BMI 26.4
[~2022-11-03 09:25] MED LIST changes: -LACTATED RINGERS 1,000 ML IV SCH; +SODIUM CHLORIDE 0.9% 1,000 ML IV SCH
[2022-11-03 09:53] VITALS: RESP 18; TEMP 98.5
[2022-11-03 11:22] VITALS: BP 128/62; PULSE 64
--- NOTE | 2022-11-03 16:17 | P.EPPROC ---
- EP Procedure Note Electrophysiology Procedure Note: Diagnosis Recurrent presyncope Twelve-lead EKG Sinus mechanism normal AR narrow QRS normal ST segments with early repolarization abnormality inferolaterally heart rate 52 beats a minute Tilt table test per protocol Baseline blood pressure 114/62 mmHg, Baseline heart rate in the 50s sinus m echanism Patient was tilted upright at an angle of 70 per protocol Heart rate and blood pressure remained stable No syncope Impression Normal 12-lead EKG Normal heart rate and blood pressure response to upright tilting
== END 2022-11-03 11:16 | disposition home or self-care (01) ==
LOC: CATHEP 09:25
PROVIDERS: ATTEND Internal Medicine Clinical Cardiac Electrophysiology
DX: R55 Syncope and collapse (principal); Z88.0 Allergy status to penicillin; Z79.891 Long term (current) use of opiate analgesic; Z79.899 Other long term (current) drug therapy
CPT/HCPCS: 93660